=== PATIENT | male | born 1960 | race Caucasian/White ===

== ENCOUNTER 2017-03-02 17:42 | Emergency (ER) | payer OTHER ==
[~2017-03-02] VITALS: Ht 162.6 cm; Wt 78.9 kg
[2017-03-02 20:09] VITALS: BP 116/74
== END 2017-03-02 20:09 | disposition home or self-care (01) ==
LOC: ED 17:42
DX: L03.116 Cellulitis of left lower limb (principal); R03.0 Elevated blood-pressure reading, without diagnosis of hypertension
CPT/HCPCS: J0696; Q0092